=== PATIENT | male | born 1940 | race Caucasian/White ===

== ENCOUNTER 2020-12-03 13:00 | Emergency (ER) | payer OTHER ==
[~2020-12-03] VITALS: Ht 170.2 cm; Wt 72.6 kg
[2020-12-03 13:17] VITALS: BP 148/70
--- NOTE | 2020-12-03 13:23 | NUR ---
80 YEAR OLD MALE BIBA FROM [facility] FOR MECHANICAL FALL X 2 HOURS AGO. PT DENIES HITTING HEAD, PER EMS PT FELL ONTO BUTT. PER EMS PT ALSO BROUGHT FOR LOWER ABDOMINAL PAIN. EMS STATES PT HAD CONSTIPATION X 3 DAYS, BUT WAS GIVEN A LAXATIVE YESTERDAY AND HAS BEEN HAVING NUMEROUS EPISODES OF DIARRHEA SINCE. PT AOX4, BREATHING EVEN AND UNLABORED, SKIN WARM AND DRY. BED IN LOWEST POSITION, LOCKED, BED RAIL UPX1. PMH - HTN, DEMENTIA ALLERGIES - ATIVAN
[2020-12-03] MEDS ORDERED: NACL 0.9% 1,000 ML IV ONE (13:45)
--- NOTE | 2020-12-03 14:00 | NUR ---
PT ALERT AND AWAKE, BREATHING EVEN AND UNLABORED. PT CONTINUES TO HAVE EPISODES OF DIARRHEA. PT CHANGED AND CLEANED. ERMD AWARE
[2020-12-03 14:02] LABS: BASOPHILS # (AUTO) 0.1 K/uL (0.00-0.22); BASOPHILS % (AUTO) 0.7 % (0.0-2.0); EOSINOPHILS # (AUTO) 0.1 K/uL (0-0.4); EOSINOPHILS % (AUTO) 0.8 % (0.0-4.0); HEMATOCRIT 42.1 % (36-52); LYMPHOCYTES # (AUTO) 1.2 K/uL (2.0-11.5); LYMPHOCYTES % (AUTO) 9.2 % (20.5-51.1); MEAN CORPUSCULAR HEMOGLOBIN 30 pg (27-31); MEAN CORPUSCULAR HGB CONC 33 g/dL (33-37); MEAN CORPUSCULAR VOLUME 89.4 fL (80-94); MONOCYTES # (AUTO) 0.8 K/uL (0.8-1.0); MONOCYTES % (AUTO) 6.4 % (1.7-9.3); NEUTROPHILS # (AUTO) 10.7 K/uL (1.8-7.7); NEUTROPHILS % (AUTO) 82.9 % (42.2-75.2); PLATELET COUNT (AUTO) 262 K/uL (140-450); RED BLOOD CELL COUNT(AUTO) 4.71 MIL/uL (4.20-6.10); RED CELL DISTRIBUTION WIDTH 13.7 % (11.6-13.7); WHITE BLOOD COUNT (AUTO) 12.9 K/uL (4.8-10.8)
[2020-12-03] MEDS ORDERED: ACETAMINOPHEN 325 MG TAB PO ONE (14:35)
[2020-12-03 15:00] LABS: ALBUMIN 3.5 g/dL (3.4-5.0); ANION GAP 12.2 (8-16); ASPARTATE AMINOTRANSFERASE 14 U/L (15-37); CARBON DIOXIDE 27.4 mmol/L (21-32); CHLORIDE 106 mmol/L (98-107); CREATININE 0.9 mg/dL (0.6-1.3); GLUCOSE 105 mg/dL (74-106); POTASSIUM 3.6 mmol/L (3.5-5.1); SODIUM SERUM 142 mmol/L (136-145); TOTAL BILIRUBIN 0.5 mg/dL (0.0-1.0); UREA NITROGEN, BLOOD 18 mg/dL (7-18)
--- NOTE | 2020-12-03 15:32 | NUR ---
PT ALERT AND AWAKE, BREATHING EVEN AND UNLABORED. PT CONTINUES TO HAVE EPISODES OF DIARRHEA. PT CHANGED AND CLEANED. ERMD AWARE
[2020-12-03] MEDS ORDERED: AMPICILLIN/SULBACTAM 3 GM in NACL 0.9% 100 ML IV SCH (16:14)
[2020-12-03] MEDS ORDERED: metroNIDAZOLE 500 MG/NS PREMIX 100 ML IV SCH (16:14)
[2020-12-03 16:37] LABS: APPEARANCE,URINE CLEAR (CLEAR); BILIRUBIN,URINE NEGATIVE (NEGATIVE); BLOOD, URINE NEGATIVE (NEGATIVE); COLOR,URINE YELLOW (YELLOW); LEUKOCYTE ESTERASE ,URINE 1+ (NEGATIVE); NITRITE, URINE NEGATIVE (NEGATIVE); UGLUCOSE NEGATIVE (NEGATIVE)
--- NOTE | 2020-12-03 18:50 | NUR ---
FECAL FINGER DECOMPACTION PERFORMED BY LUNA NELSON. PT AGITATED AFTER PROCEDURE AND GRABBED STAFF HAND AGGRESSIVELY AND ATTEMPTED TO PUNCH STAFF. LUNA VALENTINE
[2020-12-03 19:00] LABS: RBC,URINE 0-5 /HPF (0-5); YEAST,URINE Few /HPF (None Seen)
--- NOTE | 2020-12-03 19:26 | NUR ---
REPORT GIVEN TO LEÓN SPEARS, TRANSFER OF CARE AT THIS TIME
--- NOTE | 2020-12-03 19:28 | NUR ---
RECEIVED REPORT FROM BA SPEARS, FOR CONTINUITY OF CARE
[2020-12-03] MEDS ORDERED: AMOXIL/CLAVULANATE 875/125 MG 1 TAB PO ONE (19:40)
--- NOTE | 2020-12-03 20:00 | NUR ---
Patient discharged with v/s stable. Written and verbal after care instructions given and explained. Patient verbalized understanding. Ambulatory with steady gait. All questions addressed prior to discharge. Advised to follow up with PMD.
[2020-12-03 20:24] VITALS: BP 147/79
[2020-12-04] MEDS ORDERED: MULT-2611 PO (11:20)
[2020-12-04] MEDS ORDERED: TRAZ-344 PO (11:20)
[2020-12-04] MEDS ORDERED: MEMA10TA PO (11:20)
[2020-12-04] MEDS ORDERED: CLON0.5T3 PO (11:20)
[2020-12-04] MEDS ORDERED: [UNRECOGNIZED DRUG - CODE] PO (11:20)
[2020-12-04] MEDS ORDERED: VITA-16 PO (11:20)
[2020-12-04] MEDS ORDERED: ASCO-786 PO (11:23)
[2020-12-04] MEDS ORDERED: ZINC50TA76 PO (11:23)
== END 2020-12-03 20:00 | disposition home or self-care (01) ==
LOC: MED 13:00
DX: S39.93XA Unspecified injury of pelvis, initial encounter (principal); K59.00 Constipation, unspecified; E86.0 Dehydration; F03.90 Unspecified dementia, unspecified severity, without behavioral disturbance, psychotic disturbance, mood disturbance, and anxiety; G20 Parkinson's disease; E78.5 Hyperlipidemia, unspecified; Z88.8 Allergy status to other drugs, medicaments and biological substances; W19.XXXA Unspecified fall, initial encounter; Y93.89 Activity, other specified; Y92.89 Other specified places as the place of occurrence of the external cause; Y99.8 Other external cause status
CPT/HCPCS: 36415; 70450; 72125; 74176; 74177; 80053; 81001; 83690; 85025; 87070; 87086; 96361; 96365; 99285; J3490; J7030; Q9967

== ENCOUNTER 2020-12-04 03:00 | Inpatient (IN) | payer OTHER, SELFPAY ==
[~2020-12-04] VITALS: Ht 185.4 cm; Wt 82.6 kg
--- NOTE | 2020-12-04 03:02 | NUR ---
PT BIBA BLS. TAKEN TO BED 9
[2020-12-04 03:05] VITALS: BP 147/77
--- NOTE | 2020-12-04 03:10 | NUR ---
SENT HERE FROM [facility]. WAS DISCHARGED EARLIER FROM HERE. CT REPORT FOLLOWED AFTER DISCHARGE. [facility] WAS NOTIFIED OF RESULTS = COLITIS. PT RETURNS NOW VIA [facility]. IS AWAKE WITH H/O S/D. PT IS AT BASELINE. ATTACHED TO CM = SR WITHOUT ECTOPY. Addendum: 12/04/20 at 0329 by ETHAN WAS SEEN HERE EARLIER AND DISCHARGED. REPORT RETURNED AFTER DISCHARGE STATING COLITIS. STAFF AT [facility] WERE NOTIFIED, PT RETURNS TO THE ER NOW VIA AMBULANCE. PTS ORIGINAL C/O ABDOMINAL PAIN. IS AWAKE, RESPIRATIONS REGULAR AND UNLABORED, SKIN IS WARM AND DRY PMH: DEHYDRATION, HTN, DEMENTIA, GERD, BPH ALLERGIES : ATIVAN
[2020-12-04] MEDS ORDERED: PIPERACILLIN/TAZOBACTAM 3.375 GM in DEXTROSE 5% 50 ML IV ONE (04:30)
[2020-12-04] MEDS ORDERED: NACL 0.9% 1,000 ML IV ONE ×2 (04:30)
--- NOTE | 2020-12-04 05:00 | NUR ---
RESTING QUIETLY WITH EYES OPEN. RESPIRATIONS REGULAR AND UNLABORED.
[2020-12-04] MEDS ORDERED: PIPERACILLIN/TAZOBACTAM 3.375 GM VIAL IV ONE (05:05)
--- NOTE | 2020-12-04 06:15 | NUR ---
BLOOD CULTURES DRAWN AND WALKED TO LAB.
--- NOTE | 2020-12-04 06:40 | NUR ---
HAD LARGE SOFT BROWN STOOL. ERIKA CARE GIVEN, LINENS AND DIAPER CHANGED. REPOSITIONED.
--- NOTE | 2020-12-04 06:55 | NUR ---
JAE COLLECTED AND WALKED TO LAB.
--- NOTE | 2020-12-04 07:53 | NUR ---
Patient will be admitted to care of Dr Llamas. Admited to Tele. Will go to room 126B. Belongings list completed. Report to Tran SPEARS.
[2020-12-04] MEDS ORDERED: DOCUSATE SODIUM 100 MG GELCAP PO PRN (08:00)
[2020-12-04] MEDS ORDERED: ACETAMINOPHEN 325 MG TAB PO PRN (08:00)
[2020-12-04] MEDS ORDERED: ONDANSETRON 4 MG/2 ML VIAL IVP PRN (08:00)
[2020-12-04] MEDS ORDERED: ZOLPIDEM 5 MG TAB PO PRN (08:00)
[2020-12-04] MEDS ORDERED: HYDROcodone/APAP 5/325 MG 1 TAB TAB PO PRN (08:00)
[2020-12-04] MEDS ORDERED: MORPHINE SULFATE 2 MG/ML SYR IVP PRN (08:00)
[2020-12-04] MEDS ORDERED: bisacodyL 10 MG SUPP RC SCH (08:55)
[2020-12-04] MEDS: SODIUM PHOSPHATE 118 ML ENEM RC SCH ×3 (08:55→15:01)
[2020-12-04] MEDS: NACL 0.9% 1,000 ML IV SCH ×2 (08:57→17:39)
[2020-12-04 09:00] VITALS: BP 162/79
--- NOTE | 2020-12-04 09:30 | NUR ---
RECEIVED PATIENT INTO ROOM 126B WITH NO IV ACCESS AND NO ARMBAND. VERIFIED PATIENT NAME AND PLACED NEW ARMBAND. PATIENT IS AOX1, SENEGALESE SPEAKING, CONFUSED AND UNABLE TO FOLLOW COMMANDS. ANXIOUS/AGITATED, PULLING AT LINES. NOT EASILY REORIENTABLE. RESPIRATIONS EVEN AND UNLABORED ON ROOM AIR. HAVING MULTIPLE LOOSE BOWEL MOVEMENTS, INCONTINENT OF URINE. RASH TO BILATERAL BUTTOCKS DUE TO INCONTINENCE. PHOTOS TAKEN. IV PLACED INTO LEFT AC. FALL AND SAFETY PRECAUTIONS IN PLACE. WILL CONTINUE TO MONITOR.
[2020-12-04] MEDS: DOCUSATE SODIUM 100 MG GELCAP PO SCH (09:38)
--- NOTE | 2020-12-04 10:33 | NUR ---
FLACC SCORE 6/10. PATIENT IS MOANING/CRYING. IV MORPHINE GIVEN.
[2020-12-04 10:36] VITALS: BP 157/79
[2020-12-04] MEDS ORDERED: VITA-16 PO (11:20)
[2020-12-04] MEDS ORDERED: [UNRECOGNIZED DRUG - CODE] PO (11:20)
[2020-12-04] MEDS ORDERED: CLON0.5T3 PO (11:20)
[2020-12-04] MEDS ORDERED: MEMA10TA PO (11:20)
[2020-12-04] MEDS ORDERED: MULT-2611 PO (11:20)
[2020-12-04] MEDS ORDERED: TRAZ-344 PO (11:20)
[2020-12-04] MEDS ORDERED: ASCO-786 PO (11:23)
[2020-12-04] MEDS ORDERED: ZINC50TA76 PO (11:23)
[2020-12-04 12:00] VITALS: BP 150/80
--- NOTE | 2020-12-04 12:00 | NUR ---
PATIENT HAVING MULTIPLE BOWEL MOVEMENTS. INCONTINENCE CARE PROVIDED. IV FLUIDS INFUSING. STOOL SAMPLE COLLECTED AND SENT TO LAB. UPDATE PROVIDED TO FABIOLA CHILD JR.
[2020-12-04 12:51] LABS: BASOPHILS % (AUTO) 0.2 % (0.0-2.0); EOSINOPHILS # (AUTO) 0.2 K/uL (0-0.4); EOSINOPHILS % (AUTO) 2.5 % (0.0-4.0); HEMOGLOBIN 13.1 g/dL (12.0-18.0); LYMPHOCYTES % (AUTO) 10.9 % (20.5-51.1); MEAN CORPUSCULAR HEMOGLOBIN 31 pg (27-31); MEAN CORPUSCULAR HGB CONC 34 g/dL (33-37); MEAN CORPUSCULAR VOLUME 90.8 fL (80-94); MONOCYTES # (AUTO) 0.7 K/uL (0.8-1.0); MONOCYTES % (AUTO) 7.2 % (1.7-9.3); NEUTROPHILS # (AUTO) 7.2 K/uL (1.8-7.7); NEUTROPHILS % (AUTO) 79.2 % (42.2-75.2); PLATELET COUNT (AUTO) 256 K/uL (140-450); RED CELL DISTRIBUTION WIDTH 13.8 % (11.6-13.7); WHITE BLOOD COUNT (AUTO) 9.1 K/uL (4.8-10.8)
[2020-12-04 12:57] LABS: PROTHROMBIN TIME 10.7 secs (10.8-13.4)
[2020-12-04 13:02] LABS: ANION GAP 9.2 (8-16); ASPARTATE AMINOTRANSFERASE 13 U/L (15-37); CARBON DIOXIDE 28.2 mmol/L (21-32); CHLORIDE 108 mmol/L (98-107); CREATININE 0.8 mg/dL (0.6-1.3); GLUCOSE 107 mg/dL (74-106); POTASSIUM 3.4 mmol/L (3.5-5.1); SODIUM SERUM 142 mmol/L (136-145); TOTAL BILIRUBIN 0.6 mg/dL (0.0-1.0); UREA NITROGEN, BLOOD 13 mg/dL (7-18)
[2020-12-04 13:11] LABS: CHOL/HDL RATIO 2.7 (1-4.5); FREE T4 (FREE THYROXINE) 1.02 ng/dL (0.76-1.46); PHOSPHORUS 2.6 mg/dL (2.5-4.9); THYROID STIMULATING HORMONE 4.09 uIU/mL (0.34-3.74)
[2020-12-04] MEDS: CARBIDOPA/LEVODOPA 10/100 MG 1 TAB PO SCH ×3 (13:40→20:15)
[2020-12-04] MEDS: traZODone 50 MG TAB PO PRN (13:40)
--- NOTE | 2020-12-04 14:00 | NUR ---
PATIENT CONTINUES TO PULL AT FOUNDATION STAGE TEACHER AND IV FLUIDS. REORIENTATION PROVIDED, CALMING MEASURES UNSUCCESSFUL. NOTIFIED DR. Nichole
--- NOTE | 2020-12-04 15:10 | NUR ---
ATTEMPTED TO GIVE FLEET ENEMA. PATIENT HAS POOR RECTAL TONE AND UNABLE TO HOLD THE MEDICATION IN. NOTIFIED DR. Orlando
[2020-12-04] MEDS: POLYETHYLENE GLYCOL 17 GM/PKT PO SCH (15:43)
--- NOTE | 2020-12-04 15:55 | NUR ---
PATIENT WAS COMPLIANT WITH TAKING MIRALAX. OFFERED GOLYTELY, ABLE TO TAKE SOME SIPS BUT THEN SPITS IT OUT.
[2020-12-04 16:00] VITALS: BP 153/72
[2020-12-04] MEDS ORDERED: BOWEL EVACUANT DRINK 4,000 ML PDS PO SCH (16:00)
--- NOTE | 2020-12-04 16:00 | NUR ---
PATIENT IS ATTEMPTING TO GET OUT OF BED, CONFUSED/SCREAMING/COMBATIVE WITH STAFF. NOTIFIED DR Orlando. ORDERS RECEIVED FOR HALDOL IM.
--- NOTE | 2020-12-04 16:07 | NUR ---
TELEPHONE ORDER WAS PLACED FOR HALDOL IM 5 MG ONE TIME DOSE FOR PT WITH AGITATION.
[2020-12-04] MEDS ORDERED: HALOPERIDOL IM 5 MG/ML VIAL IM SCH (17:00)
--- NOTE | 2020-12-04 17:25 | NUR ---
PATIENT WAS MOVED TO 110A TO BE CLOSER TO NURSES STATION SINCE PATIENT IS ATTEMPTING TO GET OUT OF BED. REORIENTATED PATIENT. NEW IV PLACED. BILATERAL MITTEN RESTRAINTS APPLIED.
--- NOTE | 2020-12-04 17:53 | NUR ---
Aracelis 3.4. NOTIFIED DR. Nichole
[2020-12-04] MEDS ORDERED: KCL 20 MEQ/WATER INJ PREMIX 100 ML IV SCH (18:05)
--- NOTE | 2020-12-04 18:50 | NUR ---
PATIENT STILL AGITATED, TRYING TO PULL OFF MITTENS. CLOSE MONITORING PROVIDED NEAR NURSES STATION. WILL ENDORSE TO NIGHT RN.
--- NOTE | 2020-12-04 19:20 | NUR ---
RECEIVED BEDSIDE REPORT FROM AM NURSE. PATIENT IN BED, CALM AT THIS TIME. ALL SAFETY PRECAUTIONS ARE IN PLACE. CALL LIGHT WITHIN REACH. WILL CONTINUE TO MONITOR.
[2020-12-04 20:00] VITALS: BP 140/74
--- NOTE | 2020-12-04 20:00 | NUR ---
PATIENT IS AGITATED. PULLED OUT IV LINE. REINSERTED.
[2020-12-04] MEDS: MEMANTINE 10 MG TAB PO SCH (20:13)
--- NOTE | 2020-12-04 20:13 | NUR ---
DUE MEDS GIVEN ORDERED. BILATERAL SOFT WRIST RESTRAINTS IN PLACE.
[2020-12-04] MEDS: ASCORBIC ACID 500 MG TAB PO SCH (20:14)
[2020-12-04] MEDS: clonazePAM 0.5 MG TAB PO SCH (20:17)
--- NOTE | 2020-12-04 23:45 | NUR ---
PATIENT IS SLEEPING. NO SOB NOTED.
[2020-12-05] VITALS: BP 132/61
[2020-12-05 04:00] VITALS: BP 135/78
[2020-12-05] MEDS: NACL 0.9% 1,000 ML IV SCH ×2 (04:00→14:00)
[2020-12-05 06:58] LABS: BASOPHILS % (AUTO) 0.4 % (0.0-2.0); EOSINOPHILS # (AUTO) 0.3 K/uL (0-0.4); EOSINOPHILS % (AUTO) 3.9 % (0.0-4.0); HEMATOCRIT 38.7 % (36-52); LYMPHOCYTES # (AUTO) 0.8 K/uL (2.0-11.5); LYMPHOCYTES % (AUTO) 10.2 % (20.5-51.1); MEAN CORPUSCULAR HEMOGLOBIN 30 pg (27-31); MEAN CORPUSCULAR HGB CONC 34 g/dL (33-37); MEAN CORPUSCULAR VOLUME 90.1 fL (80-94); MONOCYTES # (AUTO) 0.6 K/uL (0.8-1.0); MONOCYTES % (AUTO) 7.7 % (1.7-9.3); NEUTROPHILS # (AUTO) 6.3 K/uL (1.8-7.7); NEUTROPHILS % (AUTO) 77.8 % (42.2-75.2); PLATELET COUNT (AUTO) 261 K/uL (140-450); RED BLOOD CELL COUNT(AUTO) 4.29 MIL/uL (4.20-6.10); RED CELL DISTRIBUTION WIDTH 13.7 % (11.6-13.7); WHITE BLOOD COUNT (AUTO) 8.1 K/uL (4.8-10.8)
--- NOTE | 2020-12-05 07:25 | NUR ---
ENDORSED TO AM NURSE FOR CONTINUITY OF CARE. PATIENT IS STABLE.
[2020-12-05] MEDS ORDERED: POTASSIUM CHLORIDE 40 MEQ, LIDOCAINE MPF 1% 25 MG in NACL 0.9% 250 ML IV PRN (07:45)
[2020-12-05] MEDS ORDERED: SODIUM PHOS / POTASSIUM PHOS 1 PKT PDR PO PRN (07:45)
[2020-12-05] MEDS ORDERED: MAG SULF 2000 MG/WATER PREMIX 50 ML IV PRN (07:45)
[2020-12-05 08:00] VITALS: BP 127/63
[2020-12-05 08:08] LABS: ANION GAP 10.8 (8-16); CARBON DIOXIDE 26.7 mmol/L (21-32); CHLORIDE 107 mmol/L (98-107); CREATININE 0.8 mg/dL (0.6-1.3); GLUCOSE 94 mg/dL (74-106); MAGNESIUM 1.9 mg/dL (1.8-2.4); POTASSIUM 3.5 mmol/L (3.5-5.1); SODIUM SERUM 141 mmol/L (136-145); UREA NITROGEN, BLOOD 11 mg/dL (7-18)
--- NOTE | 2020-12-05 08:38 | NUR ---
PATIENT HAS BEEN SCREENED AND CATEGORIZED LOW NUTRITION RISK. PATIENT WILL BE SEEN WITHIN 7 DAYS OF ADMISSION. 12/10/[address]
[2020-12-05] MEDS: DOCUSATE SODIUM 100 MG GELCAP PO SCH (09:00)
[2020-12-05] MEDS: POLYETHYLENE GLYCOL 17 GM/PKT PO SCH (09:00)
[2020-12-05] MEDS: MEMANTINE 10 MG TAB PO SCH ×2 (09:45→21:51)
[2020-12-05] MEDS: ZINC SULF 220 MG CAP PO SCH (09:46)
[2020-12-05] MEDS: ASCORBIC ACID 500 MG TAB PO SCH ×2 (09:46→21:51)
[2020-12-05] MEDS: CARBIDOPA/LEVODOPA 10/100 MG 1 TAB PO SCH ×4 (09:46→21:51)
[2020-12-05] MEDS: VITAMIN D 400 IU TAB PO SCH (09:46)
--- NOTE | 2020-12-05 11:29 | NUR ---
SOAP JOHN ENEMA X1 TODAY ADMINISTERED. PATIENT TOLERATED WELL. WILL CONTINUE TO MONITOR.
[2020-12-05 12:00] VITALS: BP 171/76
[2020-12-05] MEDS ORDERED: lisinopriL 5 MG TAB PO SCH (12:00)
[2020-12-05] MEDS: HYDRAGUARD CREAM TP SCH (13:54)
--- NOTE | 2020-12-05 13:54 | NUR ---
SCHEDULED MEDICATIONS DUE GIVEN. WILL CONTINUE TO MONITOR.
[2020-12-05 16:00] VITALS: BP 136/82
--- NOTE | 2020-12-05 16:53 | NUR ---
DC PLANNING: RECEIVED A CALL FROM [employer] [facility] SPOKE WITH NEHEMIAH ESQUIVEL PT'S CLINICAL AND SHE PROVIDE AUTH FOR HOSPITAL STAY AUTH # [id number] CM TO FOLLOW. Addendum: 12/06/20 at 1347 by Jyothi Pennington RN DC PLANNING CALLED PT'S SON SPOKE WITH FABIOLA CHILDRESS STATED OK TO DC PATIENT BACK TO [facility] WHEN STABLE. CM TO FOLLOW
--- NOTE | 2020-12-05 17:12 | NUR ---
SCHEDULED MEDICATIONS DUE GIVEN. WILL CONTINUE TO MONITOR.
--- NOTE | 2020-12-05 19:23 | NUR ---
GAVE REPORT TO MINIATURE TRAIN DRIVER NURSE FOR CONTINUITY OF CARE. PATIENT IN STABLE CONDITION.
--- NOTE | 2020-12-05 19:30 | NUR ---
RECEIVED REPORT FROM RN DAYSHIFT NURSE AT BEDSIDE FOR CONTINUITY OF CARE, PT IN STABLE CONDITION.
[2020-12-05 20:00] VITALS: BP 168/66
--- NOTE | 2020-12-05 20:00 | NUR ---
PT IN BED SLEEPING BUT AROUSABLE TO NAME AND LIGHT SHAKING. V/S FOLLOWS: T 97.5 P 81 R 18 B/P 168/66 02 100% ON ROOM AIR. PT WAS TURNED, CHANGED AND REPOSITIONED IN BED. ALL ORDERED PRECAUTIONS IN PLACE.
--- NOTE | 2020-12-05 21:30 | NUR ---
PT ASLEEP, BUT AWAKENED WITH NAME AND LIGHT TOUCH. PT GIVEN ORDERED KLONOPIN, NAMENDA SINEMET AND VITAMIN C. PT UNABLE TO COMPREHEND EDUCATION REGARDING MEDICATION. ALL ORDERED PRECAUTIONS IN PLACE.
[2020-12-05] MEDS: clonazePAM 0.5 MG TAB PO SCH (21:50)
[2020-12-05] MEDS: hydrALAZINE 10 MG TAB PO PRN (22:16)
--- NOTE | 2020-12-05 22:16 | NUR ---
TEXTED CADDY/CADDIE SUPERVISOR MD ONTIVEROS, REGARDING PT ELEVATED B/P, HE ORDERED HYDRAZINE 10MG PRN FOR SBP OVER 160. PT GIVEN 1 TAB, DUE TO ELEVATED B/P. WILL REEVALUATE LATER. PT TURNED, CHANGED AND REPOSITIONED IN BED.
[2020-12-05] MEDS ORDERED: MORPHINE SULFATE 2 MG/ML SYR IVP PRN (22:50)
--- NOTE | 2020-12-06 00:30 | NUR ---
PT TURNED AND CHANGED, NO RESTRAINTS ON HYPOGUARD APPLIED TO ERIKA AREA. ALL ORDERED PRECAUTIONS IN PLACE.
[2020-12-06] MEDS: HYDRAGUARD CREAM TP SCH ×2 (01:00→12:19)
[2020-12-06 04:00] VITALS: BP 133/66
--- NOTE | 2020-12-06 05:00 | NUR ---
PT GIVEN ENEMA AND WAS TURNED CHANGED AND REPOSITIONED IN BED. PT OFF RESTRAINTS.
--- NOTE | 2020-12-06 06:30 | NUR ---
NEW IV SITE PLACED ON LEFT HAND 22G. PT CONTINUES TO BE QUIET AND COMPLIANT OFF THE RESTRAINTS.
[2020-12-06 07:01] LABS: BASOPHILS # (AUTO) 0.1 K/uL (0.00-0.22); BASOPHILS % (AUTO) 1.5 % (0.0-2.0); EOSINOPHILS # (AUTO) 0.3 K/uL (0-0.4); EOSINOPHILS % (AUTO) 6.4 % (0.0-4.0); HEMATOCRIT 40.1 % (36-52); HEMOGLOBIN 13.7 g/dL (12.0-18.0); LYMPHOCYTES # (AUTO) 0.8 K/uL (2.0-11.5); LYMPHOCYTES % (AUTO) 16.8 % (20.5-51.1); MEAN CORPUSCULAR HEMOGLOBIN 31 pg (27-31); MEAN CORPUSCULAR HGB CONC 34 g/dL (33-37); MONOCYTES # (AUTO) 0.5 K/uL (0.8-1.0); MONOCYTES % (AUTO) 9.1 % (1.7-9.3); NEUTROPHILS # (AUTO) 3.3 K/uL (1.8-7.7); NEUTROPHILS % (AUTO) 66.2 % (42.2-75.2); PLATELET COUNT (AUTO) 300 K/uL (140-450); RED BLOOD CELL COUNT(AUTO) 4.45 MIL/uL (4.20-6.10); RED CELL DISTRIBUTION WIDTH 13.6 % (11.6-13.7)
[2020-12-06 07:15] LABS: ANION GAP 12.1 (8-16); CARBON DIOXIDE 27.4 mmol/L (21-32); CHLORIDE 104 mmol/L (98-107); CREATININE 0.9 mg/dL (0.6-1.3); GLUCOSE 91 mg/dL (74-106); POTASSIUM 3.5 mmol/L (3.5-5.1); SODIUM SERUM 140 mmol/L (136-145); UREA NITROGEN, BLOOD 11 mg/dL (7-18)
--- NOTE | 2020-12-06 07:34 | NUR ---
RECEIVED REPORT FROM FUEL CELL DESIGNER NURSE. PATIENT LYING DOWN IN BED. CONFUSED. NO DISTRESS NOTED. IV SITE INTACT, PATENT, AND INFUSING IVF PER MD ORDERS. PERINEAL REDNESS NOTED, HYDRAGUARD CREAM APPLIED. AAOX1, ON ROOM AIR. SAFETY MEASURES IN PLACE, CALL LIGHT WITHIN REACH. WILL CONTINUE TO MONITOR.
[2020-12-06 08:00] VITALS: BP 147/99
[2020-12-06] MEDS: DOCUSATE SODIUM 100 MG GELCAP PO SCH (09:00)
[2020-12-06] MEDS ORDERED: lisinopriL 5 MG TAB PO SCH (09:00)
[2020-12-06] MEDS: POLYETHYLENE GLYCOL 17 GM/PKT PO SCH (09:00)
[2020-12-06] MEDS: CARBIDOPA/LEVODOPA 10/100 MG 1 TAB PO SCH ×4 (09:51→21:57)
[2020-12-06] MEDS: PANTOPRAZOLE 40 MG INJ VIAL IVP SCH (09:51)
[2020-12-06] MEDS: ASCORBIC ACID 500 MG TAB PO SCH ×2 (09:51→21:57)
[2020-12-06] MEDS: MEMANTINE 10 MG TAB PO SCH ×2 (09:52→21:57)
[2020-12-06] MEDS: ZINC SULF 220 MG CAP PO SCH (09:53)
[2020-12-06] MEDS: VITAMIN D 400 IU TAB PO SCH (09:53)
[2020-12-06] MEDS: NACL 0.9% 1,000 ML IV SCH ×3 (10:00→20:00)
[2020-12-06] MEDS ORDERED: FLUCONAZOLE 100 MG TAB PO SCH (10:00)
--- NOTE | 2020-12-06 10:09 | NUR ---
SCHEDULED MEDICATIONS DUE GIVEN. WILL CONTINUE TO MONITOR.
--- NOTE | 2020-12-06 12:19 | NUR ---
SCHEDULED MEDICATIONS DUE GIVEN. WILL CONTINUE TO MONITOR.
[2020-12-06 16:00] VITALS: BP 161/68
--- NOTE | 2020-12-06 16:00 | NUR ---
PATIENT CONFUSED, SUNDOWNING. TRYING TO GET OUT OF BED, FALL RISK. PULLED OUT IV LINE. SOFT WRIST RESTRAINTS PLACED BACK ON PATIENT. WILL CONTINUE OT MONITOR.
[2020-12-06] MEDS: hydrALAZINE 10 MG TAB PO PRN (17:44)
--- NOTE | 2020-12-06 17:44 | NUR ---
SCHEDULED MEDICATIONS DUE GIVEN. WILL CONTINUE TO MONITOR.
--- NOTE | 2020-12-06 19:38 | NUR ---
GAVE REPORT TO SPOUT LINER HELPER NURSE FOR CONTINUITY OF CARE. PATIENT IN STABLE CONDITION.
--- NOTE | 2020-12-06 19:39 | NUR ---
RECD. RESTING IN BED, AWAKE, A/OX1. ABLE TO ANSWER QUESTIONS WITH YES AND NO BUT VERY CONFUSED. RESPIRATION EVEN AND UNLABORED. NO IV LINE, PULLED OUT BY PATIENT PER AM SHIFT NURSE REPORT. TRYING TO GET OUT OF BED. REORIENTED PATIENT TO HOSPITAL SETTING. SAFETY MEASURES ENFORCED. BED ON ALARM. WILL PUT ON BILATERAL SOFT WRIST RESTRAINTS PER MD ORDER, AFTER CLEANING PATIENT. DENIES PAIN 0/10.
--- NOTE | 2020-12-06 20:00 | NUR ---
HAD BM, MEDIUM, LOOSE. CLEANSED AND REPOSITIONED IN BED WITH PILLOWS. BILATERAL SOFT WRIST RESTRAINTS IN PLACED. WILL CONTINUE TO MONITOR.
--- NOTE | 2020-12-06 21:57 | NUR ---
SCHEDULED MEDICATIONS GIVEN WITH APPLE SAUCE, TOLERATED WELL.
[2020-12-06] MEDS: clonazePAM 0.5 MG TAB PO SCH (22:00)
[2020-12-07] VITALS: BP 147/80
--- NOTE | 2020-12-07 | NUR ---
AWAKE IN BED, CONFUSED. REORIENTED TO HOSPITAL SETTING. STILL TRYING TO GET OUT OF BED. DOES NOT LISTENED TO NURSES.
--- NOTE | 2020-12-07 00:52 | NUR ---
Patient's Plan of Care was discussed and reviewed with PROFILING MACHINE SETUP OPERATOR: PPIPA BUTT
[2020-12-07] MEDS: HYDRAGUARD CREAM TP SCH ×2 (01:00→12:21)
--- NOTE | 2020-12-07 02:00 | NUR ---
SLEEPING COMFORTABLY IN BED. RESPIRATION EVEN AND UNLABORED.
--- NOTE | 2020-12-07 04:00 | NUR ---
HAD BM, SMALL LOOSE. CLEANSED AND MADE COMFORTABLE IN BED.
--- NOTE | 2020-12-07 05:25 | NUR ---
NEW IV LINE INSERTED BY REGAN ÁLVAREZ AT THE LEFT FOREARM G20.
[2020-12-07] MEDS: NACL 0.9% 1,000 ML IV SCH ×2 (05:50→16:00)
[2020-12-07 05:59] LABS: BASOPHILS % (AUTO) 0.9 % (0.0-2.0); EOSINOPHILS # (AUTO) 0.3 K/uL (0-0.4); EOSINOPHILS % (AUTO) 6.4 % (0.0-4.0); HEMATOCRIT 38.2 % (36-52); HEMOGLOBIN 13.1 g/dL (12.0-18.0); LYMPHOCYTES # (AUTO) 1.1 K/uL (2.0-11.5); MEAN CORPUSCULAR HEMOGLOBIN 30 pg (27-31); MEAN CORPUSCULAR HGB CONC 34 g/dL (33-37); MONOCYTES # (AUTO) 0.6 K/uL (0.8-1.0); MONOCYTES % (AUTO) 11.2 % (1.7-9.3); NEUTROPHILS % (AUTO) 59.5 % (42.2-75.2); PLATELET COUNT (AUTO) 317 K/uL (140-450); RED BLOOD CELL COUNT(AUTO) 4.29 MIL/uL (4.20-6.10); RED CELL DISTRIBUTION WIDTH 13.4 % (11.6-13.7)
--- NOTE | 2020-12-07 06:00 | NUR ---
SOAP JOHN ENEMA GIVEN, TOLERATED WELL.
[2020-12-07 06:01] LABS: ANION GAP 7.6 (8-16); CARBON DIOXIDE 30.5 mmol/L (21-32); CHLORIDE 107 mmol/L (98-107); CREATININE 0.9 mg/dL (0.6-1.3); GLUCOSE 98 mg/dL (74-106); POTASSIUM 3.1 mmol/L (3.5-5.1); SODIUM SERUM 142 mmol/L (136-145); UREA NITROGEN, BLOOD 8 mg/dL (7-18)
--- NOTE | 2020-12-07 07:00 | NUR ---
CONDITION REMAIN STABLE. WILL ENDORSED TO AM SHIFT NURSE FOR CONTINUITY OF CARE.
[2020-12-07] MEDS ORDERED: hydrALAZINE 10 MG TAB PO PRN (07:03)
[2020-12-07 08:00] VITALS: BP 146/80
--- NOTE | 2020-12-07 08:00 | NUR ---
ASSUMED CARE TO 80 YO M, PO AAOX3, AWAKE, ALERT, CONFUSED, TRYING TO GET OUT OF BED AND TRYING TO PULL IV. PT ON BILATERAL SOFT WRIST RESTRAINS. PT ON ROOM AIR, NO SOB NOTED, IV TO LE FA 20G PATENT INTACT, INFUSING NS @ 100ML/HR INFUSING WELL. INITIAL ASSESSMENT DONE, ALL SAFETY PRECAUTION MET, CALL LIGHT WITHIN REACH, WILL CONTINUE TO MONITOR.
[2020-12-07] MEDS ORDERED: lisinopriL 5 MG TAB PO SCH (09:00)
[2020-12-07] MEDS: POLYETHYLENE GLYCOL 17 GM/PKT PO SCH (09:45)
[2020-12-07] MEDS: PANTOPRAZOLE 40 MG INJ VIAL IVP SCH (09:46)
[2020-12-07] MEDS: ASCORBIC ACID 500 MG TAB PO SCH (09:46)
[2020-12-07] MEDS: DOCUSATE SODIUM 100 MG GELCAP PO SCH (09:46)
[2020-12-07] MEDS: ZINC SULF 220 MG CAP PO SCH (09:46)
[2020-12-07] MEDS: VITAMIN D 400 IU TAB PO SCH (09:46)
[2020-12-07] MEDS: traZODone 50 MG TAB PO PRN (09:47)
[2020-12-07] MEDS: MEMANTINE 10 MG TAB PO SCH (09:47)
[2020-12-07] MEDS: CARBIDOPA/LEVODOPA 10/100 MG 1 TAB PO SCH ×3 (09:47→17:19)
[2020-12-07] MEDS ORDERED: BISA-213 RC (10:43)
[2020-12-07] MEDS ORDERED: LISI-648 PO (10:43)
[2020-12-07] MEDS ORDERED: POLY17PD46 PO (10:43)
[2020-12-07] MEDS ORDERED: DOCU-299 PO (10:43)
[2020-12-07] MEDS ORDERED: MAGN400S60 PO (10:43)
--- NOTE | 2020-12-07 11:12 | NUR ---
PATIENT PULLED OUT IV TO LEFT ARM. CATH INTACT. TRIED TO PUT IN NEW IV 3X, PT COMBATIVE, CLAWING AND KICKING NURSES FACE. NOTIFIED
--- NOTE | 2020-12-07 11:19 | NUR ---
POTASSIUM IV NOT GIVEN DUE TO PT PULLING OUT IV, AWARE. PO POTASSIUM ORDERED.
[2020-12-07] MEDS ORDERED: POTASSIUM CHLORIDE 10 MEQ TABER PO SCH (12:00)
--- NOTE | 2020-12-07 12:30 | NUR ---
DC PLANNING ZAHRA SPOKE TO TIESHA Cherry ADJUNCT FACULTY HASEEB AT TO DISCUSS PT. READY FOR DC BACK TO [facility] TODAY AND NEEDED AUTHORIZATIONS FOR SNF AND TRANSPORT. HASEEB AGREED AND STATED THAT SHE IS WORKING ON AUTHORIZATIONS AND WILL CALL BACK WITHIN AN HOUR TO PROVIDE THIS RETAIL MANAGER IN TRAINING WITH AUTHORIZATION INF. Addendum: 12/07/20 at 4937 by Gala Umana CM [facility] FACULTY HASEEB SEPULVEDA AT TO FOLLOW UP WITH PREVIOUS CONVERSATION ABOUT NEEDING PATIENT'S AUTHORIZATIONS FOR SNF AND TRANSPORT. NO RESPONSE THEREFORE ZAHRA LEFT HER A MGS WITH CONTACT NUMBER AND REQUEST FOR CALL BACK Addendum: 12/07/20 at 5346 by Gala Umana CM DC PLANING HASEEB SEPULVEDA ADJUNCT FACULTY FROM [facility] CALLED ZAHRA BACK TO PROVIDE PATIENT'S SNF AUTHORIZATION # [id number] AND FOR TRANSPORT TO SNF/[facility] TODAY BY FERMÍN AT 18:30. Addendum: 12/07/20 at 1736 by Gala Umana CM HASEEB SEPULVEDA ADJUNCT FACULTY FROM [facility] CALLED ZAHRA AGAIN STATING THAT [facility] IS NO LONGER ABLE TO TRANSPORT PATIENT. ZAHRA ASKED IF [facility] TRANSPORT CONTRACTOR IS ABLE TO TRANSPORT PATIENT TO [facility] IS INS. WILL BE ABLE TO AUTHORIZED. HASEEB STATED THAT SHE WOULD TALK TO POWER AND RECOVERY SUPERVISOR AND PLACE THIS RETAIL MANAGER IN TRAINING ON A HOLD. HASEEB STATED THAT HER POWER AND RECOVERY SUPERVISOR APPROVED AND THAT SAME AUTHORIZATION NUMBER CAN BE UTILIZED FOR PATIENT AUTHORIZATION # [id number] WITH [facility]. ZAHRA AGREED TO SET UP TRANSPORT AND ENDED THE CALL. Addendum: 12/07/20 at 1745 by Gala Umana CM SW CONTACTED [facility] AT SPOKE TO IRASEMA AND SET UP CUPOLA TENDER HELPER TIME FOR PATIENT TO [facility] TODAY 12/07/20 AT 18:30. PROVIDED PATIENT'S AUTHORIZATION #[id number] FOR TRANSPORT TO SNF/[facility]. ZAHRA CALL PATIENT REGAN CANNON TO INFORM HER OF [facility] AT 18:30 TODAY TO [facility].
[2020-12-07 16:00] VITALS: BP 122/73
--- NOTE | 2020-12-07 17:55 | NUR ---
SW CALL [facility] DIONY GOEL AT TO PROVIDE PATIENT'S SNF AUTHORIZATION # [id number] AND INFORM HER THAT PATIENT WILL BE TRANSPORTED TO THEM SNF/[facility] TODAY BY [facility] AT 18:30. AMANDO AGREED THANKED THESE DIAGNOSTIC SALES SPECIALIST FOR THE INFORMATION AND ENDED THE CALL.
[2020-12-07 18:16] VITALS: BP 122/73
--- NOTE | 2020-12-07 18:25 | NUR ---
CALLED [facility] TO GIVE REPORT TALKED TO AGA
--- NOTE | 2020-12-07 18:29 | NUR ---
PT LEFT UNIT WITH [facility].
[2020-12-08] MEDS ORDERED: PANTOPRAZOLE 40 MG TABEC PO SCH (09:00)
== END 2020-12-07 18:39 | DRG 389 ==
LOC: MED 03:00 → MMU 06:33 → MTU 16:50
PROVIDERS: ADMIT Family Medicine; ATTEND Family Medicine
DX: K56.41 Fecal impaction (principal); E44.1 Mild protein-calorie malnutrition; J98.11 Atelectasis; N39.0 Urinary tract infection, site not specified; K52.89 Other specified noninfective gastroenteritis and colitis; N40.0 Benign prostatic hyperplasia without lower urinary tract symptoms; I10 Essential (primary) hypertension; E87.8 Other disorders of electrolyte and fluid balance, not elsewhere classified; F32.9 Major depressive disorder, single episode, unspecified; M43.12 Spondylolisthesis, cervical region; M47.816 Spondylosis without myelopathy or radiculopathy, lumbar region; K40.20 Bilateral inguinal hernia, without obstruction or gangrene, not specified as recurrent; K44.9 Diaphragmatic hernia without obstruction or gangrene; I70.90 Unspecified atherosclerosis; G20 Parkinson's disease; F02.80 Dementia in other diseases classified elsewhere, unspecified severity, without behavioral disturbance, psychotic disturbance, mood disturbance, and anxiety; E87.6 Hypokalemia; R19.7 Diarrhea, unspecified; Z20.822 Contact with and (suspected) exposure to COVID-19; Z91.81 History of falling; Z88.8 Allergy status to other drugs, medicaments and biological substances; Z79.899 Other long term (current) drug therapy; Z68.24 Body mass index [BMI] 24.0-24.9, adult
CPT/HCPCS: 36415; 71045; 74018; 80048; 80053; 82150; 82272; 83036; 83605; 83690; 83735; 83880; 84100; 84439; 84443; 84484; 85025; 85610; 85730; 87040; 87081; C9113; J1630; J1644; J2001; J2270; J2543; J3480; J7030